=== PATIENT | female | born 1950 | race Hispanic/Latino ===

== ENCOUNTER → 2017-12-25 | Emergency (ER) | payer MEDICARE ==
[~2017-12-25] MED LIST: Adacel (T-DAP) 0.5 ML VIAL ONE; Dextrose 50% Abboject 50 ML SYRINGE ONE
[2017-12-25 14:46] LABS: #Basophils 0.1 thou/uL (0.0-0.2); #Eosinphils 0.1 thou/uL (0.0-0.7); #Lymphocytes 1.4 thou/uL (1.20-3.40); #Monocytes 0.5 thou/uL (0.11-0.59); #Neutrophils 8.6 thou/uL (1.40-6.50); %Basophils 0.5 % (0.0-1.0); %Eosinophils 0.6 % (0.0-10.0); %Lymphocytes 12.7 % (21.0-51.0); %Monocytes 5.1 % (0.0-10.0); %Neutrophils 81.1 % (42.0-75.0); Hemoglobin 12.6 g/dL (12.0-16.0); Mean Corpuscular HGB CONC 33.4 g/dL (32.0-36.0); Mean Corpuscular Hemoglobin 30.6 pg (27.0-31.0); Mean Corpuscular Volume 91.7 fl (81.0-99.0); Mean Platelet Volume 7.7 fL (7.4-10.4); Platelet Count 183 thou/uL (130-400); Red Blood Cell (RBC) Count 4.11 mill/uL (4.20-5.40); White Blood Cell (WBC) Count 10.7 thou/uL (4.8-10.8)
[2017-12-25 14:54] LABS: PTT 29.9 SEC (22.9-36.1); Prothrombin Time 13.4 SEC (12.0-14.7)
[2017-12-25 15:05] LABS: ALT (SGPT) 15 U/L (8-55); AST (SGOT) 20 U/L (5-34); Albumin 3.9 g/dL (3.4-4.8); Alkaline Phosphatase 104 U/L (40-150); Anion Gap 17 mmol/L (10-20); BUN (Urea Nitrogen) 24 mg/dL (9.8-20.1); Bilirubin, Total 0.4 mg/dL (0.2-1.2); Calc. Creatinine Clearance 0 mL/min (70-130); Calcium 9.7 mg/dL (7.8-10.44); Carbon Dioxide 25 mmol/L (23-31); Chloride 102 mmol/L (98-107); Estimated GFR-MDRD 36; Globulin 3.4 g/dL (2.4-3.5); Glucose 221 mg/dL (80-115); Potassium 5.5 mmol/L (3.5-5.1); Protein, Total 7.3 g/dL (6.0-8.3); Sodium 138 mmol/L (136-145)
[2017-12-25 15:06] LABS: CKMB 2.8 ng/mL (0-6.6); Troponin I Less than 0.010 ng/mL (< 0.028)
--- NOTE | 2017-12-25 16:44 | CT ---
CT CERVICAL SPINE NONCONTRAST: History: Neck pain. FINDINGS: Vertebral body heights and alignment are maintained. Disc space narrowing, endplate changes, and oste ophytosis are most pronounced at the C5-6 and C6-7 levels. Cervicothoracic junction is intact. No acu te fracture or dislocation are visible. IMPRESSION: Cervical spondylosis. No acute osseous abnormalities are demonstrated. POS: [facility]
--- NOTE | 2017-12-25 16:45 | CT ---
CT HEAD NONCONTRAST: History: Head injury. FINDINGS: There is no evidence of acute intracranial hemorrhage or infarct. The ventricles appear normal in siz e, shape, and position. There is no mass effect or shift of midline structures. Mild diffuse cortical atrophy is apparent. Scalp laceration and swelling overlies the left parietal calvarium. IMPRESSION: No acute intracranial abnormalities are demonstrated. POS: [facility]
--- NOTE | 2017-12-25 16:48 | RAD ---
CHEST ONE VIEW: History: Syncope. FINDINGS: No comparison. Cardiac silhouette is magnified by projection. Pulmonary vasculature is upper limits o f normal. Calcified granulomata are consistent with healed granulomatous disease. There is no lobar c onsolidation or evidence of pneumothorax. phototypesetting equipment monitor leads overlie the chest. IMPRESSION: No active cardiopulmonary abnormalities are demonstrated. POS: [facility]
--- NOTE | 2017-12-25 16:50 | RAD ---
RIGHT ANKLE THREE VEIWS: History: Right ankle injury. FINDINGS: Ankle mortise is intact. There is mild osteophytosis. No acute fracture, dislocation, or aggressive o sseous erosions. IMPRESSION: No acute osseous abnormalities are demonstrated. POS: [facility]
== END ==
LOC: MADERS 14:20
DX: S93.401A Sprain of unspecified ligament of right ankle, initial encounter (principal); S00.83XA Contusion of other part of head, initial encounter; S00.03XA Contusion of scalp, initial encounter; I12.9 Hypertensive chronic kidney disease with stage 1 through stage 4 chronic kidney disease, or unspecified chronic kidney disease; N18.9 Chronic kidney disease, unspecified; E11.649 Type 2 diabetes mellitus with hypoglycemia without coma; Z79.4 Long term (current) use of insulin; Z79.899 Other long term (current) drug therapy; Z79.82 Long term (current) use of aspirin
CPT/HCPCS: 36415; 36416; 70450; 71045; 72125; 80053; 82553; 84484; 85025; 85610; 85730; 90471; 90715; 93005; 94760; 96374